=== PATIENT | female | born 1950 | race Caucasian/White ===

== ENCOUNTER 2022-12-16 21:58 | Emergency (ER) | payer BC, SELFPAY ==
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
[2022-12-16 22:22] VITALS: BP 146/64; PULSE 81; RESP 16; O2SAT 98; BMI 22.4
[2022-12-16] MEDS: oxyCODONE HCl Immed Release 5 MG TABLET PO (22:37)
[2022-12-16] MEDS: Bacitracin Oint 0.9 GM PACKET 3 APPL TOPICAL (23:44)
[2022-12-16 23:51] VITALS: BP 150/76; PULSE 77; RESP 17; O2SAT 100
[2022-12-17 00:41] VITALS: BP 165/68; PULSE 84; RESP 18; O2SAT 100
== END 2022-12-17 00:43 | disposition home or self-care (01) ==
PROVIDERS: Emergency Provider Internal Medicine
DX: T20.19XA Burn of first degree of multiple sites of head, face, and neck, initial encounter (principal); T22.20XA Burn of second degree of shoulder and upper limb, except wrist and hand, unspecified site, initial encounter; T20.26XA Burn of second degree of forehead and cheek, initial encounter; T20.212A Burn of second degree of left ear [any part, except ear drum], initial encounter; X12.XXXA Contact with other hot fluids, initial encounter; Y93.89 Activity, other specified; Y92.010 Kitchen of single-family (private) house as the place of occurrence of the external cause; Y99.9 Unspecified external cause status
CPT/HCPCS: 99283; 99284

== ENCOUNTER 2022-12-29 13:37 | Outpatient (RCR) | payer BC, SELFPAY | END 2023-02-13 16:00 | disposition home or self-care (01) | LOC: HO.WCC 13:37 | PROVIDERS: Visit Provider Physician Assistant | DX: T20.27XA Burn of second degree of neck, initial encounter (principal); T20.25XA Burn of second degree of scalp [any part], initial encounter; T20.312A Burn of third degree of left ear [any part, except ear drum], initial encounter; T31.0 Burns involving less than 10% of body surface; X10.1XXA Contact with hot food, initial encounter; L53.9 Erythematous condition, unspecified | CPT/HCPCS: 16020; 99212 ==